=== PATIENT | female | born 1955 | race Caucasian/White ===

== ENCOUNTER 2021-02-14 12:13 | Emergency (ER) | payer MEDICAID ==
[~2021-02-14] VITALS: Ht 162.6 cm; Wt 88.5 kg
[2021-02-14 12:27] VITALS: BP 106/65
--- NOTE | 2021-02-14 12:51 | NUR ---
Patient ambulated to bed 3. RN evaluating the patient at bedside.
--- NOTE | 2021-02-14 13:00 | NUR ---
PATIENT 65 Y/O MALE BIB SELF FRO C/O R SIDED CHEST PAIN. PER PATIENT "ITS BEEN HURTING FOR MONTHS." PATIENT STTES THAT SHE HAS CHRONIC PAIN AND HAS HX OF ID IN 2000 AND 2016. PATIENT STATES DENIES SOB. LUNG SOUNDS CLEAR A/P BILAIT. S1S2 NOTED. PATIENT STATES PAIN SHARP 6/10 AND RADIATES TO R BREAST. NO BREAST ABNORMALITIES NOTED IN BREAST. MEDHX: HTN, HYPERLIPIDEMIA, ID 2016 AND 2010 ALLERGIES: NKA
[2021-02-14] MEDS ORDERED: CLOPIDOGREL 75 MG TAB PO ONE (13:10)
--- NOTE | 2021-02-14 13:40 | NUR ---
LABS DRAWN AND GIVEN TO [employer].
--- NOTE | 2021-02-14 13:51 | NUR ---
XRAY AT BEDSIDE.
[2021-02-14 13:56] LABS: BASOPHILS % (AUTO) 0.7 % (0.0-2.0); EOSINOPHILS # (AUTO) 0.2 K/uL (0-0.4); EOSINOPHILS % (AUTO) 2.9 % (0.0-4.0); HEMATOCRIT 37.3 % (36-48); HEMOGLOBIN 12.5 g/dL (12.0-16.0); LYMPHOCYTES # (AUTO) 1.9 K/uL (2.5-16.5); LYMPHOCYTES % (AUTO) 31.9 % (20.5-51.1); MEAN CORPUSCULAR HEMOGLOBIN 34 pg (27-31); MEAN CORPUSCULAR HGB CONC 33 g/dL (33-37); MEAN CORPUSCULAR VOLUME 100.1 fL (80-94); MONOCYTES # (AUTO) 0.5 K/uL (0.8-1.0); MONOCYTES % (AUTO) 8.5 % (1.7-9.3); NEUTROPHILS # (AUTO) 3.4 K/uL (1.8-7.7); PLATELET COUNT (AUTO) 224 K/uL (140-450); RED BLOOD CELL COUNT(AUTO) 3.72 MIL/uL (4.20-5.40); RED CELL DISTRIBUTION WIDTH 13.6 % (11.6-13.7)
[2021-02-14 14:07] LABS: CARBON DIOXIDE 23.7 mmol/L (21-32); CREATININE 1.1 mg/dL (0.6-1.3); POTASSIUM 4.7 mmol/L (3.5-5.1)
[2021-02-14 14:14] LABS: PROTHROMBIN TIME 10.3 secs (10.8-13.4)
[2021-02-14] MEDS ORDERED: CLOP75TA26 PO (14:56)
--- NOTE | 2021-02-14 15:14 | NUR ---
IV removed, catheter intact and site benign. Applied folded 4x4 gauze and tape to stop bleeding.
[2021-02-14 15:15] VITALS: BP 130/44
--- NOTE | 2021-02-14 15:15 | NUR ---
Patient discharged with v/s stable. Written and verbal after care instructions given and explained. Patient alert, oriented and verbalized understanding of instructions. Ambulatory with steady gait. All questions addressed prior to discharge. ID band removed. Patient advised to follow up with PMD. Rx of PLAVIX given. Patient educated on indication of medication including possible reaction and side effects. Opportunity to ask questions provided and answered.
== END 2021-02-14 15:15 | disposition home or self-care (01) ==
LOC: MED 12:13
DX: S20.01XA Contusion of right breast, initial encounter (principal); R07.9 Chest pain, unspecified; E11.9 Type 2 diabetes mellitus without complications; I10 Essential (primary) hypertension; E78.00 Pure hypercholesterolemia, unspecified; X58.XXXA Exposure to other specified factors, initial encounter; Y93.89 Activity, other specified; Y92.89 Other specified places as the place of occurrence of the external cause; Y99.8 Other external cause status
CPT/HCPCS: 36415; 71045; 80048; 83880; 84484; 85025; 85610; 85730; 93005; 99285